=== PATIENT | female | born 1950 | race Caucasian/White ===

== ENCOUNTER 2017-11-22 05:07 | Inpatient (IN) | payer OTHER, MEDICARE ==
[2017-10-07 12:00] LABS: BASO % 0.9 %; BASO ABS # 0.07 K/uL (0-0.2); EOS % 5.8 %; EOS ABS # 0.46 K/uL (0-0.5); HEMATOCRIT 43.2 % (37-47); HEMOGLOBIN 15.2 g/dL (12.0-16.0); IG# 0.02 K/uL (0.00-0.02); LYMPH % 39.8 %; LYMPH ABS # 3.18 K/uL (1.2-3.4); MEAN CELL VOLUME 90.6 fL (80-100); MEAN CORPUSCULAR HEMOGLOBIN 31.9 pg (25-34); MEAN CORPUSCULAR HGB CONC 35.2 g/dl (32-36); MEAN PLATELET VOLUME 10.3 fL (7.4-10.4); MONO % 6.8 %; MONO ABS # 0.54 K/uL (0.11-0.59); NEUT % 46.4 %; NEUT ABS # 3.72 K/uL (1.4-6.5); PLATELET COUNT 254 K/uL (130-400); WHITE BLOOD COUNT 7.99 K/uL (4.8-10.8)
[2017-10-07 12:09] LABS: INR 1.1 (0.9-1.1); PTT PATIENT 25.6 SECONDS (21.0-31.0)
--- NOTE | 2017-10-07 12:29 | PAT Medication Instructions ---
Service Date Oct 07, 2017. Current Home Medication List Albuterol Hfa (Ventolin Hfa), 2-4 PUFFS INH Q6H PRN for SOB/Wheezing Alendronate Sodium (Alendronate Sodium), 1 TAB PEG WK Aspirin (Aspirin), 325 MG PO QPM Atorvastatin (Lipitor), 20 MG PO QPM Calcium/Vitamin D (Os-Gagan 500 Plus D), 1 TAB PO BID Erythromycin Opth (Erythromycin Opth), 1 DROP OPB QD PRN for IRRITATION Uutqldzvywe-Nblslyfjccj-Ekk C- (Glucosamine 1500 Complex), 1 CAP PO QPM Ketotifen Fumarate (Ophth) (Zaditor 0.025% Oph), 1 DROP OP Q12H Lisinopril (Lisinopril), 1 TAB PO QPM Metformin HCl (Metformin HCl ER), 1 TAB PO BID Ocuvite Preservision (Ocuvite Preservision), 2 TAB PO BID Corydon-3 Fatty Acids (Fish Oil), 1 TAB PO BID Ranitidine (Zantac), 300 MG PO BID [Tumeric Cueumin], 1 TAB PO BID Medication Instructions For Your Scheduled Surgery -Continue as directed: Alendronate Sodium (Alendronate Sodium), 1 TAB WK -Follow your surgeon's and prescriber's instructions for: Aspirin (Aspirin), 325 MG PO QPM (Per pt reducing to 81mg prior to surgery) - Hold the following medications 2 weeks prior to surgery: Wqykhqiossy-Fibhtkvydie-Xhj C- (Glucosamine 1500 Complex), 1 CAP PO QPM Corydon-3 Fatty Acids (Fish Oil), 1 TAB PO BID [Tumeric Cueumin], 1 TAB PO BID - Hold the following medications the night before surgery: Lisinopril (Lisinopril), 1 TAB PO QPM - Hold the following medications the morning of surgery: Calcium/Vitamin D (Os-Gagan 500 Plus D), 1 TAB PO BID Metformin HCl (Metformin HCl ER), 1 TAB PO BID Ocuvite Preservision (Ocuvite Preservision), 2 TAB PO BID - Take the following medications the morning of surgery with a sip of water: Albuterol Hfa (Ventolin Hfa), 2-4 PUFFS INH Q6H PRN for SOB/Wheezing (if needed , and bring it with you to the hospital) Erythromycin Opth (Erythromycin Opth), 1 DROP OPB QD PRN for IRRITATION (if needed) Ketotifen Fumarate (Ophth) (Zaditor 0.025% Oph), 1 DROP OP Q12H Ranitidine (Zantac), 300 MG PO BID - Take the following medications as scheduled the night before surgery: Albuterol Hfa (Ventolin Hfa), 2-4 PUFFS INH Q6H PRN for SOB/Wheezing (if needed) Atorvastatin (Lipitor), 20 MG PO QPM Calcium/Vitamin D (Os-Gagan 500 Plus D), 1 TAB PO BID Erythromycin Opth (Erythromycin Opth), 1 DROP OPB QD PRN for IRRITATION (if needed) Ketotifen Fumarate (Ophth) (Zaditor 0.025% Oph), 1 DROP OP Q12H Metformin HCl (Metformin HCl ER), 1 TAB PO BID Ranitidine (Zantac), 300 MG PO BID If you have any questions please call us at [phone] or [phone] or [phone]
[2017-10-07 13:26] LABS: HEMOGLOBIN A1C 7.5 % (4.5-5.6)
--- NOTE | 2017-10-07 13:38 | DIAGNOSTIC IMAGING REPORT ---
CHEST 2 VIEWS ROUTINE CLINICAL HISTORY: Preoperative chest COMPARISON STUDY: 06/18/2009 FINDINGS: The cardiac and mediastinal contours are normal. There is no evidence of focal pulmonary consolidation. There is no evidence of failure. No pleural effusions are visualized.[ Arthritic changes are present within the shoulders. IMPRESSION: No active disease in the chest. Electronically signed by: Shawn Vicente M.D. 10/07/2017 1:37 PM Dictated Date/Time: 10/07/2017 1:37 PM
[2017-10-07 14:31] LABS: BLOOD UREA NITROGEN 16 mg/dl (7-18); CALCIUM 9.6 mg/dl (8.5-10.1); CARBON DIOXIDE 26 mmol/L (21-32); CREATININE 0.82 mg/dl (0.60-1.20); GLUCOSE 175 mg/dl (70-99); POTASSIUM 4.4 mmol/L (3.5-5.1); SODIUM 138 mmol/L (136-145)
--- NOTE | 2017-11-02 10:04 | HISTORY & PHYSICAL EXAMINATION ---
DATE OF ADMISSION: 11/05/2017 CHIEF COMPLAINT: Left knee pain. HISTORY OF PRESENT ILLNESS: The patient is a 67-year-old female, well-known to me from a previous left hip replacement done in 2008. Over the years, she developed increased pain and discomfort in both of her knees. The left knee is a bit worse than the right. She has been through extensive conservative treatment including oral medicines as well as injections which have become less successful over time. Pain is mostly in the medial side of the knee. The more she walks, the more it hurts. It does swell. She would like to have her left knee fixed. PAST MEDICAL HISTORY: Past medical history of 1. 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 2. Hypertension. 3. Elevated cholesterol. 4. Diabetes with a hemoglobin A1c of 7.5. 5. Gastroesophageal reflux disease. 6. Hiatal hernia. 7. Mild obesity, BMI 31. 8. Neck and back pain. PAST SURGICAL HISTORY: Previous surgeries include: 1. Left carpal tunnel release. 2. Left hip replacement done on 05/05/2009. ALLERGIES: SULFA WHICH CAUSE A RASH. ALSO, DESCRIBES ALLERGIES TO ALMONDS. CURRENT MEDICINES: 1. Lisinopril 50 mg at nighttime. 2. Metformin 1000 mg twice a day. 3. Atorvastatin in the evening. 4. Ranitidine 300 mg twice a day. 5. Fish oil. 6. Osteo Bi-Flex. 7. Aspirin 325 once a day. 8. Calcium with vitamin D. 9. Unspecified med. 10. Turmeric. 11. Unspecified med. SOCIAL HISTORY: A 67-year-old female. She is . She does not smoke. FAMILY HISTORY: Noncontributory. REVIEW OF SYSTEMS: Significant for diabetes for 8 years. She denies any chest pain or shortness of breath. No history of DVT or PE. She does have the history of a TIA/stroke without any sequelae. PHYSICAL EXAMINATION: GENERAL: Physical examination reveals a healthy pleasant elderly female. She looks to be in good health. HEENT EXAMINATION: Benign. NECK: Supple, no lymphadenopathy. LUNGS: Clear to auscultation. HEART: Heart has a regular rate and rhythm. ABDOMEN: Soft, nontender, nondistended. EXTREMITY EXAMINATION: Grossly neurovascularly intact except as follows: Examination of the left knee reveals the patient walks independently. She got varus alignment to her left knee with a varus thrust with weightbearing. She has got bony hypertrophy medially. Range of motion is 5-120. There is no instability. Pain with hip motion. X-RAYS: X-rays of the left knee reviewed. Shows advanced left knee DJD. She has got complete loss of medial joint space. She has subchondral sclerosis. A little bit of tibial femoral subluxation. ASSESSMENT: This is a 67-year-old white female who is 9 years out from a left hip replacement with advanced bilateral knee degenerative joint disease, left side worse than the right. She has failed conservative treatment and would like to have her left knee replaced. PLAN: We will take her to the operating room and do a left total knee replacement. The risks and benefits of this procedure were explained to the patient including but not limited to DVT, PE, , infection, neurological injury, vascular injury, bleeding problem, pain, limited range of motion, stiffness, failure to relieve symptoms, incomplete relief of symptoms, need for further surgery in future, fracture, leg length inequality, nerve palsy, etc. The patient understands and desires to proceed. Informed consent was obtained. She knows to hold her metformin 2 days preop and lisinopril the morning of surgery. We will use aspirin for DVT prophylaxis postoperatively. She is planning to be discharged to home using home health program. RODRIGUE
[~2017-11-22] VITALS: Ht 165.1 cm; Wt 83.8 kg
[2017-11-22] VITALS (9 sets, daily range): BP systolic 101–142; BP diastolic 57–76; PULSE 53–97; TEMP 36.3–37; O2SAT 92–99; Ht 165.1 cm; Wt 83.8 kg
[~2017-11-22 05:07] MED LIST: ACETAMINOPHEN 500 MG TAB PO SCH; ASPECOTC PO; ATOR-22 PO; BUPIVACAINE LIPOSOME 266 MG, BUPIVACAINE/EPINEPHRINE INJ 50 ML, SODIUM CHLORIDE 0.9% PF... INFIL SCH; CALC500C70 PO; CEFAZOLIN 2000MG IV PUSH 15 ML IV SCH; CHECK SCOPOLAMINE PATCH PLACEMENT SCH; ERYOPO OPB; FAMOTIDINE 20 MG TAB PO SCH; FSM70 PO; GABAPENTIN 300 MG CAP PO SCH; GLUC15002 PO; KETO0.0216 OP; LACTATED RINGER'S 1000ML 1,000 ML IV SCH; LACTATED RINGER'S 1000ML 500 ML IV SCH; LACTATED RINGER'S 1000ML IV SCH; LSN5 PO; METF-841 PO; METOCLOPRAMIDE HCL 10 MG TAB PO SCH; MULT-190 PO; OMEG10002 PO; RANI300T2 PO; SCOPOLAMINE 1.5 MG TDSY TD SCH; TRANEXAMIC ACID INJ 1,000 MG x 1 Bag Intra-Op IV SCH; VNTHFA/IN INH; [UNRECOGNIZED DRUG - OTHER] PO
[2017-11-22] MEDS ORDERED: FAMOTIDINE 20 MG TAB PO SCH (06:00)
[2017-11-22] MEDS ORDERED: LACTATED RINGER'S 1000ML 1,000 ML IV SCH (06:00)
[2017-11-22] MEDS ORDERED: GABAPENTIN 300 MG CAP PO SCH (06:00)
[2017-11-22] MEDS ORDERED: BUPIVACAINE LIPOSOME 266 MG, BUPIVACAINE/EPINEPHRINE INJ 50 ML, SODIUM CHLORIDE 0.9% PF... INFIL SCH ×3 (06:00)
[2017-11-22] MEDS ORDERED: METOCLOPRAMIDE HCL 10 MG TAB PO SCH (06:00)
[2017-11-22] MEDS ORDERED: LACTATED RINGER'S 1000ML 500 ML IV SCH (06:00)
[2017-11-22] MEDS ORDERED: SCOPOLAMINE 1.5 MG TDSY TD SCH (06:00)
[2017-11-22] MEDS ORDERED: TRANEXAMIC ACID INJ 1,000 MG x 1 Bag Intra-Op IV SCH ×2 (06:00)
[2017-11-22] MEDS ORDERED: LACTATED RINGER'S 1000ML IV SCH (06:00)
[2017-11-22] MEDS ORDERED: ACETAMINOPHEN 500 MG TAB PO SCH (06:00)
[2017-11-22] MEDS ORDERED: CEFAZOLIN 2000MG IV PUSH 15 ML IV SCH (06:00)
[2017-11-22] MEDS ORDERED: MIDAZOLAM HCL 1 MG/ML 2ML VIAL ONE (06:16)
[2017-11-22] MEDS ORDERED: LIDOCAINE HCL 2% 2 ML VIAL (20MG/ML) ONE (06:16)
[2017-11-22] MEDS ORDERED: FENTANYL CITRATE INJ 50 MCG/1 ML 2 ML VIAL ONE (06:16)
[2017-11-22] MEDS ORDERED: PROPOFOL IV EMULSION 10 MG/ML 20 ML VIAL ONE (06:16)
[2017-11-22] MEDS ORDERED: DEXAMETHASONE SOD INJ 4 MG/ML VIAL ONE (06:17)
[2017-11-22] MEDS ORDERED: ONDANSETRON INJ 2 MG/ML 2 ML VIAL ONE (06:17)
[2017-11-22] MEDS ORDERED: ASPI81TA28 PO (06:32)
[2017-11-22] MEDS ORDERED: SODIUM CHLORIDE 0.9% PF 50 ML VIAL ONE (06:34)
[2017-11-22] MEDS ORDERED: BUPIVACAINE 0.25% 30 ML VIAL ONE ×2 (06:34→06:36)
[2017-11-22] MEDS ORDERED: BACITRACIN 50000 UNIT VIAL ONE (06:34)
[2017-11-22] MEDS ORDERED: BUPIVACAINE LIPOSOME 1/3% 266 MG/20 ML VIAL ONE (06:34)
[2017-11-22] MEDS ORDERED: EpINEphrine INJ 1MG/ML AMP 1 MG/ML AMP ONE (06:35)
[2017-11-22] MEDS ORDERED: BUPIVACAINE 0.5 % 5 MG/1 ML PF 10ML VIAL ONE (06:36)
--- NOTE | 2017-11-22 06:52 | History & Physical Bridge Note ---
H&P Re-Evaluation Bridge Note: I have examined the patient, reviewed the History & Physical and in the interval since the performance of the History & Physical I have noted the following changes of clinical significance: No changes noted
[2017-11-22] MEDS ORDERED: EpHEDrine SULFATE INJ 50 MG/ML AMP IV PRN (07:30)
[2017-11-22] MEDS ORDERED: ATROPINE SULFATE 0.1 MG/ML 5ML SYR IV PRN (07:30)
[2017-11-22] MEDS ORDERED: FENTANYL CITRATE INJ 50 MCG/1 ML 2 ML VIAL IV PRN (07:30)
[2017-11-22] MEDS ORDERED: HYDROmorphone INJ 0.5 MG/0.5 ML SYR IV PRN ×2 (07:30→08:45)
[2017-11-22] MEDS ORDERED: PROMETHAZINE HCL INJ 12.5 MG in SODIUM CHLORIDE 0.9% 50ML 50 ML IV PRN (07:30)
[2017-11-22] MEDS ORDERED: PHENYLEPHRINE 100MCG/ML 5ML SYR IV PRN (07:30)
[2017-11-22] MEDS ORDERED: ONDANSETRON INJ 2 MG/ML 2 ML VIAL IV PRN ×2 (07:30→08:45)
[2017-11-22] MEDS ORDERED: LABETALOL HCL IV 5 MG/ML 20ML IV PRN (07:30)
[2017-11-22] MEDS ORDERED: ATROPINE SULFATE 0.4 MG/ML 1 ML VIAL ONE (08:10)
--- NOTE | 2017-11-22 08:44 | [facility] Post Operative Brief Note ---
Immediate Operative Summary Operative Date November 22, 2017. Pre-Operative Diagnosis Left Knee Advanced Degenerative Joint Disease Post-Operative Diagnosis Left Knee Advanced Degenerative Joint Disease Procedure(s) Performed Left Total Knee Arthroplasty Surgeon Dr. Arias Service Delivery Consultant Surgeon(s) MELO August Estimated Blood Loss 50 ml Findings Consistent with Post-Op Diagnosis Fluids (cc crystalloids) 1500 cc Specimens A. Left Knee Bone and Tissue Drains None Anesthesia Type General Regional Complication(s) none Disposition Accompanied Pt To Recover: no Disposition: Recovery Room / PACU Overlapping Procedure I was present for: the critical portions of procedure. I was immediately available: during the entire case
[2017-11-22] MEDS ORDERED: GLUCOSE 10 TABS/TUBE PO PRN (08:45)
[2017-11-22] MEDS ORDERED: SOD PHOSPHATE/SOD BIPHOSPHATE ENEMA 132 ML BTL PR PRN (08:45)
[2017-11-22] MEDS ORDERED: DEXTROSE 50% 50 ML SYR IV PRN (08:45)
[2017-11-22] MEDS ORDERED: METOCLOPRAMIDE HCL INJ 5 MG/ML 2 ML VIAL IV PRN (08:45)
[2017-11-22] MEDS ORDERED: ZOLPIDEM TARTRATE 5 MG TAB PO PRN (08:45)
[2017-11-22] MEDS ORDERED: CARBOHYDRATES FOR HYPOGLYCEMIA PO PRN (08:45)
[2017-11-22] MEDS ORDERED: GLUCAGON FOR INJ 1 MG VIAL SQ PRN (08:45)
[2017-11-22] MEDS ORDERED: ALBUTEROL HFA 8 GM INHALER INH PRN (08:45)
[2017-11-22] MEDS ORDERED: CEFAZOLIN IV 2,000 MG in DEXTROSE 5% 50ML 50 ML IV SCH (08:45)
[2017-11-22] MEDS ORDERED: ALUMINUM/MAGNESIUM/SIMETH (MAALOX MAX) 30 ML UDC PO PRN (08:45)
[2017-11-22] MEDS ORDERED: GLUCOSE 40% GEL 15 GM TUBE PO PRN (08:45)
[2017-11-22] MEDS ORDERED: ERYTHROMYCIN OP OINT 5 MG/GM 3.5 GM TUBE OPB PRN (08:45)
[2017-11-22] MEDS ORDERED: MAGNESIUM HYDROXIDE SUSP 30 ML UDC PO PRN (08:45)
[2017-11-22] MEDS ORDERED: PANTOprazole SOD 40 MG TAB PO SCH (09:00)
[2017-11-22] MEDS ORDERED: MULTIVITAMIN TAB PO SCH (09:00)
--- NOTE | 2017-11-22 09:35 | Anesthesiology Progress Note ---
Anesthesia Post Op Note Date & Time November 22, 2017 at 09:34 Vital Signs Pain Intensity: 0 Vital Signs Past 12 Hours Date Time Temp Pulse Resp B/P (MAP) Pulse Ox O2 Delivery O2 Flow Rate FiO2 11/22/17 09:25 37.2 75 12 127/65 98 Nasal Cannula 2 11/22/17 09:15 77 12 124/69 99 Oxymask 10 11/22/17 09:05 75 12 122/67 100 Oxymask 10 11/22/17 08:55 83 12 128/70 100 Oxymask 10 11/22/17 08:49 36.5 89 13 126/70 100 Oxymask 10 11/22/17 06:08 37.0 72 72 142/74 95 Room Air Notes Mental Status: alert / awake / arousable, participated in evaluation Pt Amnestic to Procedure: Yes Nausea / Vomiting: adequately controlled Pain: adequately controlled Airway Patency, RR, SpO2: stable & adequate BP & HR: stable & adequate Hydration State: stable & adequate Neuraxial Anesthesia: was administered, sensory block is resolving Anesthetic Complications: no major complications apparent Pt was done under GA with LMA due to inadequate level of spinal anesthesia. Pt is doing well. Awake, denies pain, VSS.
--- NOTE | 2017-11-22 09:41 | DIAGNOSTIC IMAGING REPORT ---
L KNEE 1 OR 2 VIEWS ROUTINE HISTORY: 67 years-old Female AP/LATERAL IN PACU LEFT KNEE status post placement of a left knee total joint arthroplasty. Degenerative joint disease. COMPARISON: None available TECHNIQUE: 2 views of the left hip FINDINGS: Postoperative changes from placement of a left knee total joint arthroplasty with patellar resurfacing. Alignment is satisfactory without periprosthetic fracture or malalignment. Anterior midline skin vanessa are noted along with expected postsurgical soft tissue swelling and deep tissue air. No opaque foreign body. IMPRESSION: Satisfactory alignment of the left knee arthroplasty. The above report was generated using voice recognition software. It may contain grammatical, syntax or spelling errors. Electronically signed by: Casey Queen M.D. 11/22/2017 9:39 AM Dictated Date/Time: 11/22/2017 9:38 AM
[2017-11-22] MEDS: SODIUM CHLORIDE 0.9% 1000ML 1,000 ML IV SCH ×2 (10:57→21:17)
--- NOTE | 2017-11-22 11:44 | OPERATIVE REPORT ---
DATE OF OPERATION: 11/22/2017 SURGEON: James Arias MD TELERADIOLOGIST: MELO Holder PREOPERATIVE DIAGNOSIS: Left knee degenerative joint disease. POSTOPERATIVE DIAGNOSIS: Left knee degenerative joint disease. PROCEDURE PERFORMED: Left cemented posterior stabilized total knee arthroplasty. COMPLICATIONS: None. ESTIMATED BLOOD LOSS: 50 mL. FLUID REPLACEMENT: 1500 mL crystalloid fluid replacement. ANESTHESIA: Spinal with adductor canal block and subsequent general anesthesia as the spinal was not setting up. TOURNIQUET TIME: 55 minutes at 300 mmHg. DRAINS: None. SPECIMENS: Left knee sent for pathology. OPERATIVE INDICATIONS: The patient is a 67-year-old female who has got a long history of bilateral knee pain and discomfort, the left side a bit worse than the right. She had her left hip replaced about 9 years ago and has done well from that. She has developed more debilitating pain in both knees over time and failed conservative treatment. She elected to proceed with a left total knee arthroplasty. OPERATIVE FINDINGS: Operative findings revealed advanced left knee DJD. She had extensive grade 4 changes in all 3 compartments, most severe in the medial side with extensive eburnation of the medial femoral condyle and medial tibial plateau. She had osteophytes in all 3 compartments. Moderate-sized joint effusion. OPERATIVE IMPLANTS: Operative implants consisted of: 1. A Biomet Vanguard size 65 left posterior stabilized femoral component. 2. A Biomet size 71 tibial tray. 3. A 12 mm posterior stabilized polyethylene insert. 4. A 31 x 8 all poly patella. OPERATIVE PROCEDURE: The patient was taken to the operating room, identified and placed on the operating table in supine position. All contact areas were appropriately padded. IV antibiotics were provided by the anesthesia team. Spinal anesthetic and adductor canal block had been provided in the holding area. A Bonilla catheter was placed in sterile fashion. A left thigh tourniquet was then placed. The patient was still lifting her leg and moving it, so a general laryngeal mask anesthetic was implemented by anesthesia team. The left lower extremity was then prepped and draped in usual sterile fashion. The left leg was elevated and exsanguinated with Esmarch and tourniquet was placed at 300 mmHg. An anterior approach of the left knee was then performed through a longitudinal incision centered over the patella. Sharp dissection was carried through subcutaneous tissue down to the level of the extensor mechanism. A medial parapatellar arthrotomy incision was made. Some subperiosteal dissection was carried out medially. The fat pad was resected from beneath the patellar tendon. The lateral patellofemoral ligament was released. The patella was everted and knee was flexed. The osteophytes were taken off the distal femur. The ACL and PCL were then released from the distal femur and the tibia subluxated anteriorly. The external tibial alignment jig was then placed in the anterior face of the tibia and adjusted 16 mm medially. A proximal tibial cut was made to remove about a millimeter of bone from the most deficient aspect of the posteromedial tibial plateau. Some osteophytes were taken off medially and posteromedially. The tibia was sized to a size 71. Attention was then drawn to the femur. The distal femur was entered with a sharp drill bit. The intramedullary canal was suctioned. A left 5-degree valgus cutting guide was placed. A distal femoral cutting block was pinned in place. A distal femoral cut was made to take an additional 3 mm of bone off distal femur. The femur was then sized to a size 65. I downsized this almost an entire size. The AP cutting block was pinned parallel to the epicondylar axis, which was 5 degrees of external rotation. The anterior cut, anterior chamfer cut, posterior cut, posterior chamfer cuts were made. A box cutting guide was placed and adjusted slight lateral and a box cut was made. The knee was flexed. The remnants of the medial and lateral menisci were excised. The osteophytes were taken off the posterior aspect of the femur. A trial femoral component was placed. The tibial tray was pinned in maximum external rotation and drill and stem punch were used to create defect in proximal tibia for the tibial tray. The knee was then trialed and the 12 mm insert fit most appropriately. Attention was then drawn to the patella. The patella was cleaned of all soft tissues. The patella thickness measured at 21 mm in thickness and was cut down to 13. Lug holes were drilled for a 31 patella. Lateral osteophyte was removed. Patella button was placed. The knee was taken through range of motion. Patella tracked nicely with no thumbs test. Attention was then drawn toward placement of the permanent components. All trial components were removed. A bone plug was placed in the distal femur to limit blood loss. A double batch of Palacos G cement was mixed. A left size 65 posterior stabilized femoral component, size 71 tibial tray, a 12 mm posterior stabilized polyethylene insert, and a 31 x 8 all poly patella were then cemented in place. The knee was brought into full extension until cement hardened. A final cement check was then performed. Pericapsular tissues were injected with a total of 100 mL of a combination of 20 mL of Exparel, 30 mL of normal saline, 50 mL of 0.25% Marcaine with epinephrine. The patient did receive 1 g of tranexamic acid. The tourniquet was then let down for a final tourniquet time of 55 minutes. Hemostasis was assured with use of electrocautery. The wound was once again irrigated. The extensor mechanism was then closed with a combination of #1 PDS suture and #1 Vicryl suture in [id number] fashion. The extensor mechanism was checked and found to be intact. The subcutaneous tissue was then closed with #2 Dexon suture in buried interrupted fashion. The skin was closed skin vanessa. The leg was then cleaned and dried and a sterile dressing of Xeroform, 4 x 4, sterile cast padding and Salas bandage were applied. The patient was then brought out of general anesthesia and transferred to the recovery room in stable condition. The patient tolerated the procedure well with no complications. All needle and sponge counts were correct at the end of the operation. I attest to the content of the Intraoperative Record and any orders documented therein. Any exception s are noted below.
[2017-11-22] MEDS: FERROUS GLUCONATE 324 MG TAB PO SCH ×2 (12:21→17:55)
[2017-11-22] MEDS: KETOROLAC TROMETHAMINE 15 MG/ML VIAL IV. SCH ×3 (12:21→23:22)
[2017-11-22] MEDS: INSULIN HUMAN REGULAR SC SCH ×3 (12:24→21:30)
--- NOTE | 2017-11-22 14:16 | PROGRESS NOTE ---
DATE: 11/22/2017 SUBJECTIVE: A 67-year-old white female postop from a left knee replacement. She is doing well. Pain is controlled. No chest pain, no shortness of breath. Not feeling dizzy or lightheaded. OBJECTIVE: VITAL SIGNS: Temperature is 36.4. Stable. GENERAL: Physical exam shows a pleasant middle-aged female. She is sitting up in bed and looks comfortable. She just finished her lunch. She is talking to family. RESPIRATORY: Her lungs are clear to auscultation. CARDIOVASCULAR: Heart has a regular rate and rhythm. GASTROINTESTINAL: Abdomen is soft, nontender, nondistended. EXTREMITIES: Grossly neurovascularly intact except as follows: Examination of the left lower extremity reveals the leg to be well aligned. Dressing is clean, dry, and intact. She can dorsiflex and plantarflex her foot appropriately. She is neurologically intact. IMAGING: X-rays of the left knee from recovery room reviewed, show left cemented posterior stabilized total knee arthroplasty. Components looked to be in good position. No signs of problems. ASSESSMENT: A 67-year-old female postop from a left knee replacement, doing well. Pain is controlled. She is neurologically intact. PLAN: 1. DVT prophylaxis including thigh-high TEDs, SCDs, and aspirin twice a day. 2. PT/OT. Weight bear as tolerated. Left total knee protocol. 3. Pain control. Doing well with current pain regimen. We are going to stick to tramadol, Toradol, and Tylenol. 4. IV antibiotics x24 hours. 5. Disposition: Planned to discharge to home. Her will be able to assist her. She will likely have some home health and then outpatient therapy.
[2017-11-22] MEDS: CEFAZOLIN IV 2,000 MG in SYRINGE 0 ML IV SCH ×2 (14:18→21:17)
[2017-11-22] MEDS: ACETAMINOPHEN 500 MG TAB PO SCH ×2 (14:18→21:22)
[2017-11-22] MEDS: CHECK SCOPOLAMINE PATCH PLACEMENT SCH ×2 (15:38→23:22)
[2017-11-22] MEDS ORDERED: TRANEXAMIC ACID INJ 1,000 MG in SODIUM CHLORIDE 0.9% 100ML 100 ML IV SCH (16:00)
[2017-11-22] MEDS: LISINOPRIL 5 MG TAB PO SCH (21:22)
[2017-11-22] MEDS: SENNA 8.6 MG TAB PO SCH (21:22)
[2017-11-22] MEDS: CEROVITE ADV FORMULA TAB PO SCH (21:22)
[2017-11-22] MEDS: DOCUSATE SODIUM 100 MG CAP PO SCH (21:22)
[2017-11-22] MEDS: RANITIDINE HCL 150 MG TAB PO SCH (21:22)
[2017-11-22] MEDS: ASPIRIN 81 MG ECTAB PO SCH (21:22)
[2017-11-22] MEDS: ATORVASTATIN 20 MG TAB PO SCH (21:22)
[2017-11-22] MEDS: CALCIUM 600MG + VIT D 400 IU TAB PO SCH (21:22)
[2017-11-23 02:55] VITALS: BP 115/65; PULSE 58; TEMP 36.5; O2SAT 99
[2017-11-23] MEDS: KETOROLAC TROMETHAMINE 15 MG/ML VIAL IV. SCH ×4 (05:37→23:10)
[2017-11-23] MEDS: ACETAMINOPHEN 500 MG TAB PO SCH ×3 (05:37→21:26)
[2017-11-23] MEDS: SODIUM CHLORIDE 0.9% 1000ML 1,000 ML IV SCH (05:37)
[2017-11-23 06:10] LABS: HEMATOCRIT 33.1 % (37-47); HEMOGLOBIN 11.4 g/dL (12.0-16.0); MEAN CELL VOLUME 91.2 fL (80-100); MEAN CORPUSCULAR HEMOGLOBIN 31.4 pg (25-34); MEAN CORPUSCULAR HGB CONC 34.4 g/dl (32-36); MEAN PLATELET VOLUME 9.9 fL (7.4-10.4); PLATELET COUNT 180 K/uL (130-400); RED CELL DISTRIBUTION WIDTH CV 13.2 % (11.5-14.5); RED CELL DISTRIBUTION WIDTH SD 43.6 fL (36.4-46.3); WHITE BLOOD COUNT 10.33 K/uL (4.8-10.8)
[2017-11-23 06:36] VITALS: BP 126/77; PULSE 60; TEMP 36.6; O2SAT 98
[2017-11-23 06:41] LABS: CALCIUM 8.1 mg/dl (8.5-10.1); CREATININE 0.64 mg/dl (0.60-1.20); POTASSIUM 4.1 mmol/L (3.5-5.1)
[2017-11-23] MEDS: RANITIDINE HCL 150 MG TAB PO SCH ×2 (08:22→21:21)
[2017-11-23] MEDS: FERROUS GLUCONATE 324 MG TAB PO SCH ×3 (08:22→17:35)
[2017-11-23] MEDS: DOCUSATE SODIUM 100 MG CAP PO SCH ×2 (08:23→21:20)
[2017-11-23] MEDS: CALCIUM 600MG + VIT D 400 IU TAB PO SCH ×2 (08:23→21:20)
[2017-11-23] MEDS: CEROVITE ADV FORMULA TAB PO SCH ×2 (08:23→21:20)
[2017-11-23] MEDS: CHECK SCOPOLAMINE PATCH PLACEMENT SCH ×3 (08:24→23:17)
[2017-11-23] MEDS: INSULIN HUMAN REGULAR SC SCH ×4 (08:28→21:23)
--- NOTE | 2017-11-23 10:16 | PROGRESS NOTE ---
DATE: 11/23/2017 SUBJECTIVE: This is a 67-year-old white female postop day 1 from a left knee replacement. She is doing pretty well. Pain is controlled. No chest pain or shortness of breath. Not feeling dizzy or lightheaded. OBJECTIVE: VITAL SIGNS: Temperature 36.9. Vital signs stable. GENERAL: Physical examination shows a healthy, pleasant, middle-aged female. She is lying in bed, looks pretty comfortable. She is currently doing a heel prop. LUNGS: Clear to auscultation. HEART: Heart has a regular rate and rhythm. ABDOMEN: Soft, nontender, nondistended. EXTREMITY EXAMINATION: Grossly neurovascularly intact except as follows: Examination of the left leg reveals the dressing to be clean, dry, and intact. She can dorsiflex and plantarflex her foot appropriately. She is neurologically intact. LABORATORIES: Hemoglobin 11.4. Hematocrit 33.1. Electrolytes are stable. ASSESSMENT: This is a 67-year-old white female postoperative day 1 from a left knee replacement, doing reasonably well. Pain is controlled. She is neurologically intact. PLAN: 1. DVT prophylaxis including thigh-high TEDs, SCDs, and aspirin twice a day. We will put on 325 twice a day due to her TIA history. 2. PT/OT. Weightbear as tolerated. Left total knee protocol. 3. Pain control, doing pretty well with the current pain regimen. 4. Diabetes. She is on insulin sliding scale coverage. 5. Disposition: Planning to discharge to home with some home health once adequately recovered.
[2017-11-23 11:20] VITALS: BP 128/70; PULSE 68; TEMP 36.7; O2SAT 95
[2017-11-23] MEDS: ASPIRIN 325 MG ECTAB PO SCH ×2 (13:24→21:45)
[2017-11-23] MEDS: ASPIRIN 81 MG ECTAB PO SCH (13:24)
[2017-11-23 15:12] VITALS: BP 128/68; PULSE 57; TEMP 36.7; O2SAT 97
[2017-11-23] MEDS ORDERED: ULT50X PO (18:18)
[2017-11-23] MEDS ORDERED: ASPEC325 PO (18:18)
[2017-11-23] MEDS ORDERED: ACET-24 PO (18:18)
--- NOTE | 2017-11-23 18:21 | Discharge Instructions ---
Discharge Instructions Date of Service November 23, 2017. Admission Reason for Admission: Left Knee Degenerative Joint Disease Discharge Discharge Diagnosis / Problem: Left Knee Replacement Discharge Goals Goal(s): Decrease discomfort, Improve function, Increase independence, Improve disease control, Therapeutic intervention Activity Recommendations Activity Limitations: per Instructions/Follow-up section Weightbearing Status: Left weightbearing . Instructions / Follow-Up Instructions / Follow-Up ACTIVITY RECOMMENDATIONS: Physical Therapy: * You will go to physical therapy three times each week for four to six weeks after your surgery in order to regain your knee range of motion and to retrain your knee to work properly. * It is just as important to make sure you are getting your knee perfectly straight as it is to regain your knee bend. * Taking a pain pill an hour before therapy can help you have a more productive and comfortable therapy session. Home Exercise: * You were shown a series of exercises (heel props, heel slides, etc.) in the hospital. Do these exercises three to four times each day including the exercises you were shown in physical therapy. Walking: * Get up and walk several times each day. For the first four weeks, try not to stand or walk for more than one hour at a time. If you do stand or walk for more than one hour, you will not hurt anything, but your knee and leg will likely swell. * As you feel comfortable, you may change from the walker or crutches to a cane and then to independent walking. MEDICATIONS: New Medicine: * You will likely be taking one or more of these medications: 1. Tramadol - A quick and shorter-acting pain medication. Take one to two tablets every four to six hours to lessen your pain. 2. Aspirin - Thins your blood to lessen the chance of forming a blood clot. * The most common side effects of pain medicine and iron are nausea and constipation. If nausea or constipation is too much of a problem or if you have any questions about your new medicines or doses, call [facility] at . We will try to help you manage these issues. VERY IMPORTANT TO READ AND REVIEW" Pain: * The immediate post-operative period after knee replacement surgery is often quite painful. * You are given a prescription for pain medicine. You should take it, as directed, when you need it, especially before physical therapy and before going to bed. Pain that interferes with sleep is very common and can last several months. * You will likely need pain medicine for the first four to six weeks. It will not stop all of the pain. The pain will lessen and as you feel better, you may change to milder pain medicine such as Tylenol. * The most common side effects of pain medicine are nausea and constipation, so don't take more than you need. SPECIAL CARE INSTRUCTIONS: TEDs/Elastic Stockings: * The white elastic stockings help limit swelling and prevent blood clots from forming in your legs. The more you wear them, the more they work. * Wear them for six weeks after knee replacement surgery and four weeks after partial knee replacement. Prevention of Infection: * Take antibiotics one hour before any dental cleaning, dental work, urological procedure, gastrointestinal procedure or any invasive surgery in order to prevent your new joint from getting infected. * You may get the antibiotics from the doctor performing the procedure or you may call our office at before and we will call in a prescription to the pharmacy of your choice. Things to Watch For: * Drainage from the incision site that occurs more than one week after your surgery. * Severely increased knee/leg pain or swelling. * Increased redness at the incision site. * Fever above 102 degrees Fahrenheit. * Unusual chest pain or shortness of breath. * Unusual pain or burning with urination. Call [facility] at with any of the above problems or if you have any questions about your medicines or recovery. FOLLOW UP VISIT: Make an appointment to see your doctor for approximately two weeks after surgery for a progress check and staple removal by calling the office at . Current Hospital Diet Patient's current hospital diet: Diabetes Type 2 Diet Discharge Diet Recommended Diet: Diabetes Type 2 Diet Procedures Procedures Performed: Left Total Knee Arthroplasty Pending Studies Studies pending at discharge: no Laboratory Results Hemoglobin A1c Test 10/07/17 11:30 Range/Units Estimated Average Glucose 169 mg/dl Hemoglobin A1c 7.5 H 4.5-5.6 % Medical Emergencies . Who to Call and When: Medical Emergencies: If at any time you feel your situation is an emergency, please call 911 immediately. . Non-Emergent Contact Non-Emergency issues call your: Surgeon . . "Provider Documentation" section prepared by James Arias. .
[2017-11-23] MEDS: LISINOPRIL 5 MG TAB PO SCH (21:20)
[2017-11-23] MEDS: ATORVASTATIN 20 MG TAB PO SCH (21:20)
[2017-11-23] MEDS: SENNA 8.6 MG TAB PO SCH (21:20)
[2017-11-23 23:04] VITALS: BP 121/72; PULSE 63; TEMP 36.9; O2SAT 97
[2017-11-23] MEDS: TRAMADOL HCL 50 MG TAB PO PRN (23:12)
[2017-11-24] MEDS: KETOROLAC TROMETHAMINE 15 MG/ML VIAL IV. SCH (05:19)
[2017-11-24] MEDS: ACETAMINOPHEN 500 MG TAB PO SCH (05:20)
[2017-11-24 06:21] VITALS: BP 117/67; PULSE 66; TEMP 36.9; O2SAT 97
[2017-11-24] MEDS: INSULIN HUMAN REGULAR SC SCH (08:23)
[2017-11-24] MEDS: TRAMADOL HCL 50 MG TAB PO PRN ×2 (08:24→11:50)
[2017-11-24] MEDS: FERROUS GLUCONATE 324 MG TAB PO SCH (08:25)
[2017-11-24] MEDS: CEROVITE ADV FORMULA TAB PO SCH (08:26)
[2017-11-24] MEDS: CALCIUM 600MG + VIT D 400 IU TAB PO SCH (08:26)
[2017-11-24] MEDS: DOCUSATE SODIUM 100 MG CAP PO SCH (08:26)
[2017-11-24] MEDS: RANITIDINE HCL 150 MG TAB PO SCH (08:27)
[2017-11-24] MEDS: ASPIRIN 325 MG ECTAB PO SCH (08:27)
[2017-11-24] MEDS: CHECK SCOPOLAMINE PATCH PLACEMENT SCH (08:28)
--- NOTE | 2017-11-24 08:58 | PROGRESS NOTE ---
DATE: 11/24/2017 SUBJECTIVE: Gjaft-gqxs-vfsz-old white female postop day 2 from a left knee replacement. She is doing well. Pain is controlled. No chest pain or shortness of breath. Not feeling dizzy or lightheaded. OBJECTIVE: VITAL SIGNS: Temperature 36.9. Vital signs stable. PHYSICAL EXAMINATION: GENERAL: Reveals a pleasant, middle-aged female. She is sitting up in her bedside chair, eating breakfast. She looks comfortable. EXTREMITIES: Examination of the left leg reveals the dressing to be clean, dry and intact. Leg is well aligned. Calf is soft and supple. She can dorsiflex and plantarflex her foot appropriately. ASSESSMENT: A 67-year-old white female postop day 2 from left knee replacement, doing pretty well. Pain is controlled. PLAN: 1. DVT prophylaxis including thigh-high TEDs, SCDs, and aspirin twice a day. 2. PT/OT. Weight bear as tolerated. Left total knee protocol. 3. Pain control, doing well with current pain regimen. 4. Disposition: Plan to discharge to home with some home health after therapy later today.
[2017-11-24 09:40] VITALS: BP 117/67; PULSE 66; TEMP 36.9; O2SAT 97
--- NOTE | 2017-11-26 14:53 | DISCHARGE SUMMARY ---
ADMITTING PHYSICIAN AND SURGEON: Dr. Arias. ADMITTING DIAGNOSIS: Left knee degenerative joint disease. SURGERY PERFORMED: Left total knee arthroplasty. SECONDARY DIAGNOSES: Transient ischemic attack, stroke, hypertension, elevated cholesterol, diabetes, gastroesophageal reflux disease, hiatal hernia, mild obesity, neck and back pain. CONSULTS: None obtained. HISTORY AND PHYSICAL EXAMINATION: Well documented in the patient's chart. HOSPITAL COURSE: Patient was admitted on 11/22/2017, underwent total knee arthroplasty, tolerated the procedure well. There were no complications. She was transferred to the PACU postoperatively and later the orthopedic for further care. She was given Ancef for antibiotic prophylaxis, EMILY stockings, SCDs and aspirin for DVT prophylaxis. Hemoglobin, hematocrit and vital signs were monitored during hospital stay and remained stable. She did not require any blood transfusions. There were no complications. By postoperative day 2, she was tolerating a diabetic diet. Pain was controlled with oral pain medicine. She was participating in physical therapy. On postop day 2, she was discharged home, set up with home health services. She was given printed discharge instructions including new prescriptions for Extra strength Tylenol, aspirin and tramadol. Continue her home medications with the exception of her home doses of aspirin which were changed. Continue physical therapy, weightbearing as tolerated, EMILY stockings. Follow up in 10-12 days or sooner if there are any problems or concerns.
== END 2017-11-24 12:08 | disposition home health service (06) | DRG 470 ==
LOC: C.ACU 05:07 → C.3E 06:40 → ENRESERV 09:11
PROVIDERS: ADMIT Orthopaedic Surgery Sports Medicine; ATTEND Orthopaedic Surgery Sports Medicine
PROC: 0SRD0J9 Replacement of Left Knee Joint with Synthetic Substitute, Cemented, Open Approach (ICD-10-PCS; principal; 2017-11-22 07:00)
DX: M17.12 Unilateral primary osteoarthritis, left knee (principal); I10 Essential (primary) hypertension; Z86.73 Personal history of transient ischemic attack (TIA), and cerebral infarction without residual deficits; E11.9 Type 2 diabetes mellitus without complications; E66.9 Obesity, unspecified; K21.9 Gastro-esophageal reflux disease without esophagitis; Z68.31 Body mass index [BMI] 31.0-31.9, adult; Z96.642 Presence of left artificial hip joint; Z79.84 Long term (current) use of oral hypoglycemic drugs; E78.5 Hyperlipidemia, unspecified; Z79.82 Long term (current) use of aspirin

== ENCOUNTER 2018-12-16 10:00 | Inpatient (IN) ==
--- NOTE | 2018-11-14 14:23 | PAT Medication Instructions ---
Medication Instructions Date of Service November 14, 2018 Home Medications albuterol sulfate 2 puff INHALATION QID PRN alendronate 70 mg PO WK aspirin 325 mg PO QPM atorvastatin 20 mg PO QPM calcium carbonate-vitamin D3 1 tab PO BID glucosamine-chondroitin 2 cap PO QPM ketotifen fumarate [Zaditor] 1 drp OPHTHALMIC (EYE) Q12H lisinopril 5 mg PO QPM metformin 1,000 mg PO BID omega 3-opk-joh-fish oil [Fish Oil] 1 cap PO BID ranitidine HCl 300 mg PO BID turmeric 1 cap PO BID [[facility]] vit C-E-zinc acj-wxmatk- tab PO BID Continue as directed alendronate 70 mg PO WK ASK your prescriber and surgeon aspirin 325 mg PO QPM STOP taking 2 weeks before surgery (or as soon as possible if surgery is within 2 weeks) glucosamine-chondroitin 2 cap PO QPM omega 6-isd-pku-fish oil [Fish Oil] 1 cap PO BID turmeric 1 cap PO BID [[facility]] vit C-E-zinc lyn-aurnjj-[id number] tab PO BID DO NOT take the morning of surgery calcium carbonate-vitamin D3 1 tab PO BID metformin 1,000 mg PO BID Take morning of surgery With a small sip of water, OTHERWISE NOTHING TO EAT OR DRINK AFTER MIDNIGHT: albuterol sulfate 2 puff INHALATION QID PRN (use if needed; please bring with you to hospital day of surgery if possible) ketotifen fumarate [Zaditor] 1 drp OPHTHALMIC (EYE) Q12H ranitidine HCl 300 mg PO BID Take evening before surgery albuterol sulfate 2 puff INHALATION QID PRN (if needed) atorvastatin 20 mg PO QPM calcium carbonate-vitamin D3 1 tab PO BID ketotifen fumarate [Zaditor] 1 drp OPHTHALMIC (EYE) Q12H lisinopril 5 mg PO QPM metformin 1,000 mg PO BID ranitidine HCl 300 mg PO BID Other Notes If you have any questions please call us at [phone] or [phone] or [phone] or [phone]
--- NOTE | 2018-11-17 13:52 | Anesthesiology Consultation ---
Date of Service November 17, 2018 Assessment & Plan (1) Encounter for pre-operative examination: - Check BSG AM DOS - Left TKA= 11/22/17: SAB x1 at L3-L4 --> LMA#4. Pt was done under GA with LMA d ue to inadequate level of spinal anesthesia. Chart Review Chart Review: Acceptable Risk for Surgery and Patient seen in Pre Admission Test ing Teaching & Discussion Pre-Anesthesia Teaching/Discussion Notes: Instructed NPO after midnight before surgery,except medications with 15 cc of water. Medication instructions provided according to the PAT guidelines. History Surgery Operation Date: 12/16/18 07:00 Proposed Procedures p Right Total Knee Replacement - James Arias MD Height/Weight Height: 5 ft 5 in Weight: 84.2 kg Allergies Allergy/AdvReac Type Severity Reaction Status Date / Time Sulfa (Sulfonamide Allergy Mild RASH Verified 11/10/18 14:16 Antibiotics) almond Allergy Unknown THROAT Verified 11/10/18 14:16 SWELLS Medications Home Medications Medication Instructions Recorded Confirmed Last Taken albuterol sulfate 2 puff INHALATION QID PRN 11/10/18 11/10/18 Unknown alendronate 70 mg PO WK 11/10/18 11/10/18 Unknown aspirin 325 mg PO QPM 11/10/18 11/10/18 Unknown atorvastatin 20 mg PO QPM 11/10/18 11/10/18 Unknown calcium carbonate-vitamin D3 1 tab PO BID 11/10/18 11/10/18 Unknown [Calcium 500 + D] glucosamine-chondroitin 2 cap PO QPM 11/10/18 11/10/18 Unknown ketotifen fumarate [Zaditor] 1 drp OPHTHALMIC (EYE) Q12H 11/10/18 11/10/18 Unknown lisinopril 5 mg PO QPM 11/10/18 11/10/18 Unknown metformin 1,000 mg PO BID 11/10/18 11/10/18 Unknown omega 4-rmn-jco-fish oil [Fish Oil] 1 cap PO BID 11/10/18 11/10/18 Unknown ranitidine HCl 300 mg PO BID 11/10/18 11/10/18 Unknown turmeric 1 cap PO BID 11/10/18 11/10/18 Unknown vit C-E-zinc ylo-dvyfzg-mjwtlg 2 tab PO BID 11/10/18 11/10/18 Unknown [[facility]] Past Medical History Medical History Diabetes mellitus, type 2 NIDDM GERD (gastroesophageal reflux disease) CONTROLLED Hiatal hernia Hyperlipidemia Hypertension Osteoarthritis Stroke 10 YEARS AGO= NO RESIDUAL EFFECTS Exercise / Class Metabolic Activity II 4-5 Yardwork/Stairs/Walk up hill Past Surgical History Surgical History History of bilateral tubal ligation History of carpal tunnel release LEFT History of colonoscopy History of total hip arthroplasty History of total knee replacement LEFT Nausea and vomiting after administration of anesthetic agent PONV; "DID WONDERFUL" WITH PRIOR SCOPE PATCH USE Past Anesthesia History No Family Hx of Anesthesia Complications and Other Left TKA= 11/22/17: SAB x1 at L3-L4 --> LMA#4. Pt was done under GA with LMA due to inadequate level of spinal anesthesia. History of PONV No Hx of Motion Sickness and History of PONV (NO ISSUES WITH SCOPE PATCH USED WITH PRIOR SURGERY) Social History Smoking Status: Never smoker Do You Dip or Chew Tobacco: No Hx Alcohol Use: No Hx Substance Use: No substance use type: does not use Review of Systems Patient denies chest pain, shortness of breath, dyspnea on exertion, cough, whe ezing, palpitations. Physical Exam Vital Signs VITALS BP 109/67 P 77 TEMP 98.4 SP02 96%RA RESP 18 PHYSICAL Full neck and c-spine range of motion. Full TMJ range of motion. TMD 2.5 finger breaths Mallampati Score 2 Dentition: upper partial, lower front tooth extraction scheduled for 11/20 (surgeon made aware) Lungs: clear throughout to auscultation Cardiac: regular rate and rhythm, no murmurs noted Spine: normal Carotid arteries: negative bruit Extremities: no edema Testing Electrocardiogram Date: 11/17/18 Findings: + NSR @ (71) Chest X-Ray Date: 11/18/18 Findings: + NAD Laboratory Results 11/17/18 14:33 11/17/18 14:33 Blood Type A Positive 11/17/18 14:33 Antibody Screen NEGATIVE 11/17/18 14:33 PT 11.6 Seconds (9.0-12.0) 11/17/18 14:33 INR 1.1 (0.9-1.1) 11/17/18 14:33 APTT 25.5 Seconds (21.0-31.0) 11/17/18 14:33 Hemoglobin A1c 7.9 % (4.5-5.6) H 11/17/18 14:33 Surgeon made aware of elevated hgba1c/glucose*
--- NOTE | 2018-11-17 14:51 | XRay Report ---
XR chest Pre-admission PA/Lat CLINICAL HISTORY: pat preoperative evaluation COMPARISON STUDY: 06/18/2009 FINDINGS: The bones soft tissues and hemidiaphragms are normal. The cardiomediastinal silhouette is n ormal. The lungs are clear. The pulmonary vasculature is normal. IMPRESSION: Negative chest. The above report was generated using voice recognition software. It may contain grammatical, syntax or spelling errors. Electronically signed by: Reid Niño M.D. 11/17/2018 2:50 PM
[2018-11-17 16:09] LABS: Basophils # (auto) 0.07 K/uL (0-0.2); Basophils % (auto) 0.8 %; Eosinophils % (auto) 5.4 %; Hematocrit (blood only) 40.7 % (37-47); Hemoglobin 14.4 g/dL (12.0-16.0); Immature Granulocytes # (auto) 0.02 K/uL (0.00-0.02); Immature Granulocytes % (auto) 0.2 %; Lymphocytes # (auto) 3.33 K/uL (1.2-3.4); Lymphocytes % (auto) 36.1 %; Mean Corpuscular Hgb Conc 35.4 g/dL (32-36); Mean Corpuscular Volume 90.4 fL (80-100); Monocytes # (auto) 0.67 K/uL (0.11-0.59); Monocytes % (auto) 7.3 %; Neutrophils # (auto) 4.64 K/uL (1.4-6.5); Neutrophils % (auto) 50.2 %; Platelet Count 199 K/uL (130-400); RDW Coefficient of Variation 13.4 % (11.5-14.5); White Blood Count 9.23 K/uL (4.8-10.8)
[2018-11-17 16:20] LABS: INR 1.1 (0.9-1.1); Partial Thromboplastin Ratio 0.9; Partial Thromboplastin Time 25.5 Seconds (21.0-31.0); Prothrombin Time 11.6 Seconds (9.0-12.0)
[2018-11-17 16:22] LABS: BUN Creatinine Ratio 16.3 (10-20); Blood Urea Nitrogen 14 mg/dl (7-18); C Reactive Protein < 0.29 mg/dl (0-0.29); Calcium 9.5 mg/dl (8.5-10.1); Carbon Dioxide 30 mmol/L (21-32); Chloride 102 mmol/L (98-107); Creatinine Clr Calc Pharmacy 65.2 ml/min; Est GFR (African American) 79.3; Est GFR (Non-African American) 68.4; Glucose 178 mg/dl (70-99); Potassium 4.3 mmol/L (3.5-5.1); Sodium 139 mmol/L (136-145)
[2018-11-18 05:57] LABS: Estimated Average Glucose 180 mg/dl; Hemoglobin A1C 7.9 % (4.5-5.6)
--- NOTE | 2018-12-10 14:50 | History and Physical Report ---
DATE OF ADMISSION: 12/16/2018 CHIEF COMPLAINT: Right knee pain. HISTORY OF PRESENT ILLNESS: This is a 68-year-old female, previous [employer], who presents for surgical treatment of her right knee. She has had a long history of knee problems and underwent a left knee replacement just about a year ago and done well from this. She is continuously bothered by right knee pain and discomfort. It is global pain. The more she walks, the more it hurts. She has been through conservative care including injections and oral medicines without much relief. She has nighttime discomfort. She would like to proceed with right knee replacement. PAST MEDICAL HISTORY: 1. Stroke several years ago without residual sequelae and on no medical prophylaxis. 2. Hypertension. 3. Elevated cholesterol. 4. Diabetes x10 years. 5. Gastroesophageal reflux disease. 6. Hiatal hernia. 7. Obesity, BMI 31. PAST SURGICAL HISTORY: Previous surgeries include: 1. Left total hip replacement done on 12/23/2009. 2. Left knee replacement done on 11/22/2017. 3. Left carpal tunnel release. ALLERGIES: SULFA WHICH CAUSED A RASH. CURRENT MEDICINES: Include: 1. Aspirin 325 once a day. 2. Calcium twice a day. 3. Osteo Bi-Flex. 4. Turmeric. 5. Magnesium 400 mg a day. 6. Atorvastatin 40 mg a day. 7. Lisinopril 5 mg. 8. Ranitidine 300 mg twice a day. 9. Metformin 1000 mg twice a day. 10. Fish oil twice a day. SOCIAL HISTORY: A 68-year-old female. She is . Does not smoke. FAMILY HISTORY: Noncontributory. REVIEW OF SYSTEMS: Significant for diabetes for 10 years. Denies any chest pain or shortness of breath. No history of DVT or PE. She does have this history of a stroke without sequelae and she is just taking full-strength aspirin once a day. PHYSICAL EXAMINATION: GENERAL: Shows a pleasant elderly female. Looks to be in good health. HEENT: Benign. NECK: Supple. No lymphadenopathy. LUNGS: Clear to auscultation. HEART: Has regular rate and rhythm. ABDOMEN: Soft, nontender, nondistended. EXTREMITIES: Grossly neurovascularly intact except as follows: Examination of the right knee reveals the patient walks with a bit of a limp. She has got varus alignment to her knee. She has got bony hypertrophy medially. Range of motion 5-10 degrees short of full extension to 120 degrees of flexion. There is no instability. No pain with hip motion. She is neurologically intact. X-RAYS: X-ray of the right knee reviewed. Shows advanced right knee DJD. She has complete loss of medial joint space. She has subchondral sclerosis. She has osteophytes off the medial femoral condyle and medial tibial plateau. ASSESSMENT: A 68-year-old female about a year out from a left knee replacement and about 9 years out from a left hip replacement with advanced right knee degenerative joint disease. She has failed conservative treatment and would like to have her right knee replaced. PLAN: We will take her to the operating room and do right total knee replacement. The risks and benefits of this procedure were explained to the patient include but not limited to DVT, PE, , infection, neurological injury, vascular injury, bleeding problem, pain, limited range of motion, stiffness, failure to relieve symptoms, incomplete relief of symptoms, need for further surgery in future, fracture, leg length inequality, nerve palsy, incomplete relief of symptoms, etc. The patient understands and desires to proceed. Informed consent was obtained. She does take aspirin once a day. We will likely put on a full aspirin twice a day after surgery for DVT prophylaxis. She will hold her metformin the morning of surgery along with the lisinopril. We will use insulin sliding scale coverage in the hospital.
[~2018-12-16 10:00] MED LIST changes: -ASPECOTC PO; -ATOR-22 PO; +BUPIVACAINE 0.5 % 5 MG/1 ML PF 10ML VIAL ONE; -BUPIVACAINE LIPOSOME 266 MG, BUPIVACAINE/EPINEPHRINE INJ 50 ML, SODIUM CHLORIDE 0.9% PF... INFIL SCH; +BUPIVACAINE LIPOSOME/PF 266 MG, BUPIVACAINE/EPINEPHRINE 50 ML, SODIUM CHLORIDE 0.9% 30 ... INFIL SCH; -CALC500C70 PO; +CEFAZOLIN 2000MG 2,000 MG/15 ML SYR IV SCH; -CEFAZOLIN 2000MG IV PUSH 15 ML IV SCH; -CHECK SCOPOLAMINE PATCH PLACEMENT SCH; -ERYOPO OPB; -FSM70 PO; -GABAPENTIN 300 MG CAP PO SCH; +GABAPENTIN 300 MG PO SCH; -GLUC15002 PO; -KETO0.0216 OP; -LACTATED RINGER'S 1000ML 1,000 ML IV SCH; -LACTATED RINGER'S 1000ML 500 ML IV SCH; -LACTATED RINGER'S 1000ML IV SCH; +LR 500ML BOLUS, THEN 15ML/HR IV SCH; +LR 60ML/HR IV SCH; -LSN5 PO; -METF-841 PO; -METOCLOPRAMIDE HCL 10 MG TAB PO SCH; +METOCLOPRAMIDE HCL 10 MG TABLET PO SCH; -MULT-190 PO; -OMEG10002 PO; -RANI300T2 PO; +ROPIVACAINE 0.5% 5 MG/ML 30 ML VIAL ONE; +TRANEXAMIC ACID 1,000 MG **IV Pre-op IV SCH; -TRANEXAMIC ACID INJ 1,000 MG x 1 Bag Intra-Op IV SCH; -VNTHFA/IN INH; -[UNRECOGNIZED DRUG - OTHER] PO
--- OUTSIDE RECORDS SUMMARY | 2018-12-16 10:09 | External Medical Summary | Continuity of Care Document ---
:1950 Author Name Tara Casas, Provider Address Unavailable Unavailable , Care Team Providers Name Role Phone Lb [email or web address] PCP, UNKNOWN Unavailable Unavailable Problems Active medical history not documented Allergies and Adverse Reactions Allergy history not documented Medications Medications not documented Procedures Procedures not documented Immunizations Immunizations not documented Plan of Treatment Planned Observations Planned Goals not documented Results No Known Results Results not documented
--- NOTE | 2018-12-16 11:01 | History & Physical Bridge Note ---
Date of Service December 16, 2018 History & Physical Bridge Note I have examined the patient, reviewed the History & Physical and in the interval since the performance of the History & Physical I have noted the following changes of clinical significance: no changes noted
[2018-12-16] MEDS ORDERED: fentaNYL citrate 100 MCG/2 ML VIAL ONE (11:24)
[2018-12-16] MEDS ORDERED: MIDAZOLAM HCL 1 MG/ML 2ML VIAL ONE ×2 (11:24→12:54)
[2018-12-16] MEDS ORDERED: HYDROmorphone INJ 1 MG/ML SYRINGE IV PRN (11:34)
[2018-12-16] MEDS ORDERED: ONDANSETRON INJ 2 MG/ML 2 ML VIAL IV PRN ×2 (11:34→15:32)
[2018-12-16] MEDS ORDERED: PHENYLEPHRINE 100MCG/ML 5ML SYR IV PRN (11:34)
[2018-12-16] MEDS ORDERED: ATROPINE SULFATE 0.1 MG/ML 10ML SYR IV PRN (11:34)
[2018-12-16] MEDS ORDERED: fentaNYL citrate 100 MCG/2 ML VIAL IV PRN (11:34)
[2018-12-16] MEDS ORDERED: ePHEDrine sulfate 50 MG/ML AMP IV PRN (11:34)
[2018-12-16] MEDS ORDERED: PROMETHAZINE HCL 12.5 MG in SODIUM CHLORIDE 0.9% 50 ML IV PRN (11:34)
[2018-12-16] MEDS ORDERED: BACITRACIN INJ 50,000 UNIT VIAL ONE (11:36)
[2018-12-16] MEDS ORDERED: BUPIVACAINE LIPOSOME 1.3% 266 MG/20 ML VIAL ONE (11:36)
[2018-12-16] MEDS ORDERED: BUPIVACAINE 0.25% 30 ML VIAL ONE (11:37)
[2018-12-16] MEDS ORDERED: SODIUM CHLORIDE 0.9% PF 50 ML VIAL ONE (11:37)
[2018-12-16] MEDS ORDERED: EPINEPHrine INJ 1 MG/ML AMP ONE (11:38)
[2018-12-16] MEDS ORDERED: ePHEDrine sulfate 50 MG/ML SYR ONE (14:14)
[2018-12-16] MEDS ORDERED: PROPOFOL IV EMULSION 10 MG/ML 20 ML VIAL IV ONE (14:14)
[2018-12-16] MEDS ORDERED: ONDANSETRON INJ 2 MG/ML 2 ML VIAL ONE (14:14)
--- NOTE | 2018-12-16 14:24 | Post Operative Brief Note ---
Immediate Post Op Note v1 Date of Surgery December 16, 2018 Pre & Post Diagnosis Operation Date: 12/16/18 12:30 Pre-Op Diagnosis: Right Knee Degenerative Joint Disease Post-Op Diagnosis: Right Knee Degenerative Joint Disease Procedure Operation Date: 12/16/18 12:30 Actual Procedures p Right Total Knee Replacement(Right) - James Arias MD Surgeon James Arias MD Overlock Operator Franchesca, PAC Estimated Blood Loss 50 Findings Consistent with Post-Op Diagnosis Specimens Right Knee Drains Bonilla Catheter and Hemovac Drain Anesthesia Type Spinal MAC Complications none Disposition Accompanied Patient To Recovery: No Disposition: Recovery Room
--- NOTE | 2018-12-16 14:48 | XRay Report ---
RIGHT KNEE 2 VIEWS History: Right total knee arthroplasty. Degenerative arthritis. Postop. FINDINGS: The patient is status post a right total knee arthroplasty. The hardware is intact. No frac ture or dislocation. Skin vanessa are in place. IMPRESSION: Right total knee arthroplasty. No evidence for hardware complication. Electronically signed by: Jerome Hyde M.D. 12/16/2018 2:47 PM
--- NOTE | 2018-12-16 15:10 | Anesthesiology Progress Note ---
Date of Service December 16, 2018 Anesthesia Post Procedure Vital Signs Vital Signs: Temp Pulse Pulse Resp BP BP Pulse Ox 12/16/18 15:05 36.9 C 68 19 128/66 100 12/16/18 14:55 69 15 126/74 98 12/16/18 14:45 65 16 129/69 100 12/16/18 14:35 79 16 107/53 L 100 12/16/18 14:27 36.4 C L 62 20 115/68 100 12/16/18 10:31 37.2 C 73 20 131/76 99 Pain Intensity Right Knee: Pain Intensity: 0 Transfer of Care Handoff Completed per policy Notes Mental Status: alert / awake / arousable Patient Amnestic to Procedure: Yes Nausea / Vomiting: adequately controlled Pain: adequately controlled Airway Patency, RR, SpO2: stable & adequate BP & HR: stable & adequate Neuraxial Anesthesia: was administered and sensory block is resolving Anesthetic Complications: no major complications apparent Notes: Awake, doing well, no complaints. VSS
[2018-12-16] MEDS ORDERED: SODIUM CHLORIDE 0.9% 1000ML 1,000 ML IV SCH (15:32)
[2018-12-16] MEDS ORDERED: GLUCOSE 40% GEL 15 GM TUBE PO PRN (15:32)
[2018-12-16] MEDS ORDERED: BISACODYL 10 MG SUPP PR PRN (15:32)
[2018-12-16] MEDS ORDERED: PHARMACY GLYCEMIC MGMT CONSULT STA (15:32)
[2018-12-16] MEDS ORDERED: GLUCAGON FOR INJ 1 MG VIAL SQ PRN (15:32)
[2018-12-16] MEDS ORDERED: GLUCOSE 10 TABS/TUBE PO PRN (15:32)
[2018-12-16] MEDS ORDERED: ALUMINUM/MAGNESIUM SUSP 30 ML UDC PO PRN (15:32)
[2018-12-16] MEDS ORDERED: CARBOHYDRATES FOR HYPOGLYCEMIA PO PRN (15:32)
[2018-12-16] MEDS ORDERED: NALOXONE HCL 0.4 MG/1 ML VIAL/CARP IV PRN (15:32)
[2018-12-16] MEDS ORDERED: HYDROmorphone INJ 0.5 MG/0.5 ML SYR IV PRN (15:32)
[2018-12-16] MEDS ORDERED: METOCLOPRAMIDE HCL INJ 5 MG/ML 2 ML VIAL IV PRN (15:32)
[2018-12-16] MEDS ORDERED: DEXTROSE 50% 50 ML SYRINGE IV PRN (15:32)
[2018-12-16] MEDS ORDERED: ALBUTEROL HFA 8 GM INHALER INH PRN (15:32)
[2018-12-16] MEDS ORDERED: MAGNESIUM HYDROXIDE SUSP 30 ML UDC PO PRN (15:32)
[2018-12-16] MEDS ORDERED: PHARMACY GLYCEMIC MGMT CONSULT PRN (15:37)
[2018-12-16] MEDS: CHECK SCOPOLAMINE PATCH PLACEMENT SCH (18:28)
[2018-12-16] MEDS: INSULIN ASPART 100 UNITS/ML 3 ML PEN SC SCH ×2 (18:30→21:23)
[2018-12-16] MEDS: KETOROLAC TROMETHAMINE 15 MG/ML VIAL IV SCH (18:34)
[2018-12-16] MEDS: ASCORBIC ACID 500 MG TAB PO SCH (18:34)
[2018-12-16] MEDS: FERROUS GLUCONATE 324 MG TAB PO SCH (18:34)
[2018-12-16] MEDS ORDERED: VIT C E ZINC CIT LUTEIN ZEAXAN PO SCH (21:00)
[2018-12-16] MEDS ORDERED: TRANEXAMIC ACID 1,000 MG in 0.9 % SODIUM CHLORIDE 100 ML IV SCH (21:00)
--- NOTE | 2018-12-16 21:06 | Pharmacy Report ---
Glycemic Control Consultation - Date of Service December 16, 2018 - Scope Scope: Glycemic Pharmacist consulted by Dr Arias on 12-16 for glycemic control and to write orders per [facility] inpatient glycemic control protocol - Objective Weight: 79.974 kg Accuchecks BSG (last 24hrs): 12/16/18 12/16/18 12/16/18 10:26 14:30 17:10 POC Glucose 153 H 149 H 168 H HbA1c: Hemoglobin A1c 7.9 % (4.5-5.6) H 11/17/18 14:33 - Recent Pertinent Medications Outpatient Anti-diabetic Regimen: * metformin 1 gm bid * A1c = 7.9 % [11-17-18] Risk Factors for Insulin Resistance: * Steroids: none * Recent Surgery: POD 0 * Diet: T2DM - Assessment & Plan Assessment & Plan: ASSESSMENT: * 68 year old now s/p R TKA. PMHx significant for hld, htn, stroke, obesity, GERD, type 2 diabetes * Managed only on metformin at home - last A1c is 7.9% * No steroids given in OR - will utilize stress of of 2 for Novolog dosing / will initiate Lantus if BSGs >160 at HS PLAN FOR INPATIENT GLYCEMIC CONTROL: * Basal insulin * Lantus - 7 units x 1 tonight / will reassess tomorrow AM if ongoing order needed * Bolus insulin * NovoLog per scale ACHS or Q6hrs while NPO * Goal Range: Low 110 mg/dL - High 140 mg/dL * Correction Factor: 25 mg/dL/unit * Nutritional / Prandial insulin per carb ratio of 1 unit per 10 grams CHO consumed * Please note that the plan above was derived based on current level of insulin resistance and hospital stress. These recommendations are appropriate for inpatient admission only. Plan of care upon discharge will need to be reassessed to avoid potential outpatient hypo/hyperglycemia. Thank you.
[2018-12-16] MEDS: CEFAZOLIN 2000MG 2,000 MG/15 ML SYR IV SCH (21:10)
[2018-12-16] MEDS: DOCUSATE SODIUM 100 MG CAP PO SCH (21:20)
[2018-12-16] MEDS: ACETAMINOPHEN 500 MG TAB PO SCH (21:20)
[2018-12-16] MEDS: LISINOPRIL 5 MG TAB PO SCH (21:20)
[2018-12-16] MEDS: ATORVASTATIN 20 MG TAB PO SCH (21:20)
[2018-12-16] MEDS: ASPIRIN 325 MG ECTAB PO SCH (21:20)
[2018-12-16] MEDS: CALCIUM 600MG + VIT D 400 IU TAB PO SCH (21:20)
[2018-12-16] MEDS: SENNA 8.6 MG TAB PO SCH (21:21)
[2018-12-16] MEDS ORDERED: LANTUS PER UNIT CHARGE SQ ONE (21:30)
[2018-12-17] MEDS: KETOROLAC TROMETHAMINE 15 MG/ML VIAL IV SCH ×5 (00:55→23:21)
[2018-12-17] MEDS: CHECK SCOPOLAMINE PATCH PLACEMENT SCH ×4 (00:55→23:21)
[2018-12-17] MEDS: INSULIN ASPART 100 UNITS/ML 3 ML PEN SC SCH ×6 (01:12→21:14)
--- NOTE | 2018-12-17 01:33 | Operative Report ---
DATE OF OPERATION: 12/16/2018 SURGEON: James Arias MD AIRPL[employer] PATR[employer] PILOT: MELO Holder PREOPERATIVE DIAGNOSIS: Right knee degenerative joint disease. POSTOPERATIVE DIAGNOSIS: Right knee degenerative joint disease. PROCEDURE PERFORMED: Right cemented posterior stabilized total knee arthroplasty. COMPLICATIONS: None. ESTIMATED BLOOD LOSS: 50 mL. FLUID REPLACEMENT: 1400 mL crystalloid fluid replacement. TOURNIQUET TIME: 53 minutes at 300 mmHg. ANESTHESIA: Spinal with adductor canal block. DRAINS: None. SPECIMENS: Right knee sent for pathology. OPERATIVE INDICATIONS: The patient is a 68-year-old female who has had a long history of multiple joint arthritic complaints and problems over the years. She underwent a left hip replacement as well as a left knee replaced in the past and has done well from these. She continues to be debilitated by right knee pain and discomfort. X-rays showed advanced knee DJD. She has failed conservative treatment and elected to proceed with operative intervention/knee replacement. OPERATIVE FINDINGS: Operative findings were advanced right knee DJD. Extensive grade 4 changes of the medial compartment and patellofemoral compartments. The lateral compartment was pretty well preserved. She had a varus deformity to her knee with osteophytes medially and anteriorly and moderate sized knee effusion. OPERATIVE IMPLANTS: Operative implants consisted of, 1. Biomet Vanguard size 65 right posterior stabilized femoral component. 2. Biomet size 67 tibial tray. 3. A 12 mm posterior stabilized polyethylene insert. 4. A 34 x 8.5 all poly patella. OPERATIVE PROCEDURE: The patient was taken to the operating room, identified and placed on the Operating Room table in supine position. All contact areas were appropriately padded. I.V. antibiotics were provided by anesthesia team. Spinal anesthetic and adductor canal block had been provided in the holding area. Bonilla catheter was placed in sterile fashion. Right thigh tourniquet was then placed and the right lower extremity was then prepped and draped in the usual sterile fashion. The right leg was elevated and exsanguinated with Esmarch and tourniquet was placed at 300 mmHg. An anterior approach of the right knee was then performed through a longitudinal incision centered over the patella. Sharp dissection was carried through the subcutaneous tissues down to the level of the extensor mechanism. A medial parapatellar arthrotomy incision was made. Some subperiosteal dissection was carried out medially. The fat pad was resected from beneath the patellar tendon. The lateral patellofemoral ligament was released. The patella was subluxated laterally and the knee was flexed. The osteophytes were taken off the distal femur. The ACL and PCL were then released from the distal femur and the tibia subluxated anteriorly. The external tibial alignment jig was then placed in the anterior face of the tibia and adjusted 16 mm medially. Proximal tibial cut was made to remove about a millimeter or 2 of bone from most deficient aspect of the medial tibial plateau. Some osteophytes were taken off medial and posteromedially. Attention was then drawn to the femur. The distal femur was entered with a sharp drill bit. Intramedullary canal was suctioned. A right 5-degree valgus cutting guide was placed. Distal femoral cutting block was pinned in place. Distal femoral cut was made to take an additional 3 mm of bone off the distal femur. Femur was then sized to a size 65. We did downsize this slightly. The AP cutting block was pinned parallel to the epicondylar axis, which was 4 degrees of external rotation. The anterior cut, anterior chamfer, posterior cut, posterior chamfer cuts were made. Box cutting guide was placed and adjusted slightly laterally. Box cut was made. The knee was flexed. The remnants of the medial and lateral menisci were excised. The osteophytes were taken off the posterior aspect of the femur. A trial femoral component was placed. The tibial tray was pinned in maximum external rotation and the drill and stem punch were used to create defect from proximal tibia for the tibial tray. The knee was then trialed for 12 mm insert fit and 12 mm insert fit most appropriately. Attention was then drawn to the patella. The patella was cleaned of all soft tissues. Patellar thickness measured 23 mm in thickness and was cut down to 14. It was sized to a size 31 patella. Lug holes were drilled for 31 patella. Lateral osteophyte was removed. Patellar button was placed. Knee was taken through range of motion and patella tracked nicely with no thumbs test. Attention was then drawn toward placement of permanent components. After all trial components were removed, a bone plug was placed in the distal femur to limit blood loss. A double batch of Palacos G cement was mixed. A Biomet Vanguard size 65 right posterior stabilized femoral component, size 67 tibial tray, 12 mm posterior stabilized polyethylene insert, and a 31 x 8 all poly patella was then cemented in place. The knee was brought out into full extension until cement hardened. A final cement check was then performed. Pericapsular tissues were injected with a total of 100 mL of combination of 20 mL of Exparel, 30 mL of normal saline and 50 mL of 0.25% Marcaine with epinephrine. The patient did receive 1 gram of tranexamic acid. The tourniquet was then let down for final tourniquet time of 53 minutes. Hemostasis was assured with use of electrocautery. The extensor mechanism was then closed with a combination of #1 PDS suture and #1 Vicryl suture in a [id number] fashion. Extensor mechanism was checked and found to be intact. Subcutaneous tissues were then closed with #2 Dexon suture in a buried interrupted fashion. Skin was closed with skin vanessa. Leg was then cleaned, dried and a sterile dressing of Xeroform, 4 x 4's, sterile cast padding and Salas bandage were applied. The patient was then transferred to the recovery room in a stable condition. The patient tolerated the procedure well with no complication. All instrument and sponge counts were correct at the end of the operation. I attest to the content of the Intraoperative Record and any orders documented therein. Any exception s are noted below.
[2018-12-17] MEDS: ACETAMINOPHEN 500 MG TAB PO SCH ×3 (05:48→21:11)
[2018-12-17] MEDS: CEFAZOLIN 2000MG 2,000 MG/15 ML SYR IV SCH (05:48)
[2018-12-17 06:24] LABS: Hematocrit (blood only) 33.4 % (37-47); Hemoglobin 11.6 g/dL (12.0-16.0); Mean Corpuscular Hgb Conc 34.7 g/dL (32-36); Mean Corpuscular Volume 90.5 fL (80-100); Mean Platelet Volume 9.7 fL (7.4-10.4); Platelet Count 181 K/uL (130-400); RDW Coefficient of Variation 13.2 % (11.5-14.5); RDW Standard Deviation 43.4 fL (36.4-46.3); Red Blood Count 3.69 M/uL (4.2-5.4)
[2018-12-17 06:54] LABS: BUN Creatinine Ratio 12.1 (10-20); Creatinine Clr Calc Pharmacy 58.2 ml/min; Est GFR (African American) 71.2; Est GFR (Non-African American) 61.5; Potassium 4.1 mmol/L (3.5-5.1)
--- NOTE | 2018-12-17 07:16 | Anesthesiology Progress Note ---
Date of Service December 17, 2018 Anesthesia Post Procedure Vital Signs Vital Signs: Temp Pulse Pulse Resp BP BP Pulse Ox 12/17/18 04:01 36.7 C 65 16 104/64 97 12/16/18 23:19 36.7 C 68 16 116/68 96 12/16/18 18:30 36.9 C 67 16 120/72 99 12/16/18 17:42 74 18 142/78 H 100 12/16/18 16:42 36.7 C 64 18 154/76 H 99 12/16/18 16:00 36.4 C L 66 17 154/80 H 98 12/16/18 15:30 36.7 C 65 16 132/77 96 12/16/18 15:05 36.9 C 68 19 128/66 100 12/16/18 14:55 69 15 126/74 98 12/16/18 14:45 65 16 129/69 100 12/16/18 14:35 79 16 107/53 L 100 12/16/18 14:27 36.4 C L 62 20 115/68 100 12/16/18 10:31 37.2 C 73 20 131/76 99 Pain Intensity Right Knee: Pain Intensity: 1 Notes Mental Status: alert / awake / arousable and participated in evaluation Nausea / Vomiting: adequately controlled Pain: adequately controlled Airway Patency, RR, SpO2: stable & adequate BP & HR: stable & adequate Hydration State: stable & adequate Neuraxial Anesthesia: sensory block resolved Anesthetic Complications: Pt Satisfied with anesthetic care
[2018-12-17] MEDS: ASPIRIN 325 MG ECTAB PO SCH ×2 (08:59→21:11)
[2018-12-17] MEDS: DOCUSATE SODIUM 100 MG CAP PO SCH ×2 (08:59→21:11)
[2018-12-17] MEDS: ASCORBIC ACID 500 MG TAB PO SCH ×2 (08:59→17:07)
[2018-12-17] MEDS: CALCIUM 600MG + VIT D 400 IU TAB PO SCH ×2 (08:59→21:11)
[2018-12-17] MEDS: MULTIVITAMIN TAB PO SCH (09:00)
[2018-12-17] MEDS: FERROUS GLUCONATE 324 MG TAB PO SCH ×2 (09:32→17:07)
[2018-12-17] MEDS: METFORMIN HCL 500 MG TAB PO SCH ×2 (09:56→17:07)
--- NOTE | 2018-12-17 14:57 | Pharmacy Report ---
Pharmacy Glycemic Short Note 2 - Date of Service December 17, 2018 - Glycemic Short BSG Results (Last 24 hours): 12/16/18 12/16/18 12/16/18 17:10 21:11 23:52 Glucose POC Glucose 168 H 179 H 140 H 12/17/18 12/17/18 12/17/18 04:02 06:09 08:16 Glucose 132 H POC Glucose 135 H 162 H 12/17/18 12:10 Glucose POC Glucose 163 H Outpatient Anti-diabetic Regimen: * metformin 1 gm bid * A1c = 7.9 % [11-17-18] ASSESSMENT: 12/17/18: * BSGs have been relatively well-controlled post-op. * Metformin was resumed this morning. * Will continue Novolog for now to provide additional correctional/prandial cov erage. May consider stopping Novolog tomorrow. 12/16/18 * 68 year old now s/p R TKA. PMHx significant for hld, htn, stroke, obesity, GERD, type 2 diabetes * Managed only on metformin at home - last A1c is 7.9% * No steroids given in OR - will utilize stress of of 2 for Novolog dosing / will initiate Lantus if BSGs >160 at HS PLAN FOR INPATIENT GLYCEMIC CONTROL: * Basal insulin * no further basal insulin needed at this time * Bolus insulin * NovoLog per scale ACHS or Q6hrs while NPO * Goal Range: Low 110 mg/dL - High 140 mg/dL * Correction Factor: 25 mg/dL/unit * Nutritional / Prandial insulin per carb ratio of 1 unit per 10 grams CHO consumed PLAN FOR DISCHARGE: * Patient's A1c (7.9%) indicates acceptable glycemic control as an outpatient. * Expect that patient may resume home regimen on discharge, as long as she does not report having episodes of hypoglycemia.
--- NOTE | 2018-12-17 21:05 | Progress Note ---
DATE: 12/17/2018 SUBJECTIVE: A 68-year-old female postop day 1 from a right knee replacement. She is doing pretty well. Pain is controlled. No chest pain or shortness of breath. Not feeling dizzy or lightheaded. OBJECTIVE: VITAL SIGNS: Temperature is 37.2. Vital signs stable. GENERAL: Reveals a pleasant, middle-aged female. She is sitting up in bed, looks pretty comfortable. EXTREMITIES: Examination of the right leg reveals the leg to be well aligned. Dressing is clean, dry and intact. She can dorsiflex and plantarflex her foot appropriately. She is neurologically intact. LABORATORY DATA: Hemoglobin is 11.6. Hematocrit 33.4. Electrolytes are stable. ASSESSMENT: A 68-year-old female postop day 1 from a right knee replacement, doing pretty well. Pain is controlled. She is neurologically intact. PLAN: 1. DVT prophylaxis including thigh-high TEDs, SCDs, and aspirin twice a day. 2. PT/OT. Weightbear as tolerated. Right total knee protocol. 3. Pain control, doing pretty well with current pain regimen. 4. Disposition: She is going to be discharged to home with some home health once adequately recovered.
[2018-12-17] MEDS: ATORVASTATIN 20 MG TAB PO SCH (21:11)
[2018-12-17] MEDS: SENNA 8.6 MG TAB PO SCH (21:11)
[2018-12-17] MEDS: LISINOPRIL 5 MG TAB PO SCH (21:12)
[2018-12-18] MEDS: ACETAMINOPHEN 500 MG TAB PO SCH (05:51)
[2018-12-18] MEDS: KETOROLAC TROMETHAMINE 15 MG/ML VIAL IV SCH (05:51)
--- NOTE | 2018-12-18 07:24 | Progress Note ---
DATE: 12/18/2018 SUBJECTIVE: A 68-year-old female postop day 2 from right knee replacement. She is doing pretty well. Pain is controlled. Therapy went well yesterday. No chest pain or shortness of breath. OBJECTIVE: VITAL SIGNS: Temperature 37.1. Vital signs stable. GENERAL: Physical examination shows pleasant elderly female. She is sitting up in bed, looks pretty comfortable. EXTREMITIES: Examination of the right leg reveals the leg to be well aligned. Dressing is clean, dry and intact. She can dorsiflex and plantarflex her foot appropriately. She is neurologically intact. ASSESSMENT: A 68-year-old female postop day 2 from right knee replacement, doing pretty well. Pain is controlled. She is neurologically intact. PLAN: 1. DVT prophylaxis including thigh-high TEDs, SCDs, and aspirin twice a day. 2. PT/OT. Weight bear as tolerated. Right total knee protocol. 3. Pain control, doing pretty well with current pain regimen. 4. Disposition: Plan to discharge to home with some home health later today after therapy.
[2018-12-18] MEDS: TRAMADOL HCL 50 MG TABLET PO PRN ×2 (07:30→10:10)
[2018-12-18] MEDS: ASPIRIN 325 MG ECTAB PO SCH (07:30)
[2018-12-18] MEDS: ASCORBIC ACID 500 MG TAB PO SCH (07:30)
[2018-12-18] MEDS: FERROUS GLUCONATE 324 MG TAB PO SCH (07:31)
[2018-12-18] MEDS: METFORMIN HCL 500 MG TAB PO SCH (07:31)
[2018-12-18] MEDS: CALCIUM 600MG + VIT D 400 IU TAB PO SCH (07:31)
[2018-12-18] MEDS: MULTIVITAMIN TAB PO SCH (07:31)
[2018-12-18] MEDS: CHECK SCOPOLAMINE PATCH PLACEMENT SCH (07:32)
[2018-12-18] MEDS: INSULIN ASPART 100 UNITS/ML 3 ML PEN SC SCH (07:34)
[2018-12-18] MEDS: DOCUSATE SODIUM 100 MG CAP PO SCH (07:37)
--- NOTE | 2018-12-19 14:44 | Discharge Summary ---
ADMITTING PHYSICIAN AND SURGEON: James Arias MD ADMITTING DIAGNOSIS: Right knee degenerative joint disease. SURGERY PERFORMED: Right total knee arthroplasty. SECONDARY DIAGNOSES: History of stroke, hypertension, elevated cholesterol, diabetes, gastroesophageal reflux disease, hiatal hernia, and obesity. CONSULTS: None obtained. HISTORY AND PHYSICAL EXAMINATION: Well documented in the patient's chart. HOSPITAL COURSE: The patient was admitted on 12/16/2018, underwent total knee arthroplasty, tolerated the procedure well. There were no complications. She was transferred to the PACU postoperatively and later to the orthopedic floor for further care. She was given Ancef for antibiotic prophylaxis, EMILY stockings, SCDs and aspirin for DVT prophylaxis. Hemoglobin, hematocrit and vital signs were monitored during hospital stay and remained stable, did not require any blood transfusions. There were no complications. By postoperative day 2, she was tolerating a diabetic diet. Pain was controlled with oral pain medicine. She was participating in physical therapy. On postop day 2, she was discharged home. She was set up with home health services, was given printed discharge instructions including new prescriptions for extra-strength Tylenol, aspirin and tramadol. Continue her home medications. Continue physical therapy, weightbearing as tolerated, EMILY stockings. Follow up approximately 2 weeks postop or sooner if there are any problems or concerns.
[2018-12-21] MEDS ORDERED: ALENDRONATE SODIUM 70 MG TAB PO SCH (09:00)
== END 2018-12-18 11:05 | disposition home health service (06) | DRG 470 ==
LOC: ASU 10:00 → 3E 15:34